=== PATIENT | female | born 1945 | race Caucasian/White ===

== ENCOUNTER → 2020-04-19 | Outpatient (CLI) | payer OTHER ==
[2020-04-19 09:24] LABS: ABSOLUTE NEUTROPHILS 2.8 thou/uL (1.4-8.2); EOSINOPHILS 1.7 % (0.0-3.0); HEMATOCRIT 43.8 % (37.0-47.0); HEMOGLOBIN 14.6 gm/dL (12.0-15.0); LYMPHOCYTES 23.2 % (24.0-44.0); MCH 30.9 pg (26.0-34.0); MCHC 33.4 g/dL (28.0-37.0); MCV 92.4 fL (80.0-100.0); MONOCYTES 8.8 % (1.0-8.0); POLYS 65.3 % (36.0-66.0); RBC 4.74 mil/uL (4.20-5.00); RDW 12.4 % (10.5-14.5); WBC 4.2 thou/uL (4.0-11.0)
[2020-04-19 09:42] LABS: CALCIUM 9.4 mg/dL (8.5-10.1); CREATININE 0.8 mg/dL (0.6-1.0); POTASSIUM 4.3 mmol/L (3.5-5.1); TOTAL BILIRUBIN 0.6 mg/dL (0.2-1.0); TOTAL PROTEIN 6.8 g/dL (6.4-8.2)
--- NOTE | 2020-04-19 09:51 | EKG ---
[place] [address] [facility] [employer] [place] [address] ELECTROCARDIOGRAM REPORT Name: KATHRYN CHRISTIANSON [id number]: 04/19/20 Attend Phys: Jamie Fernandez MD Discharge: Date of : 49 Report #: [id number] [facility] Test Date: 2020-04-19 Test Time: 09:26:02 Pat Name: KATHRYN CHRISTIANSON Department: Room: Gender: F [employer]anking [employer] Operator: ANGEL : 1945 Requested By: Jamie Fernandez Order Number: [id number] MD: Joe Fernandes Measurements Intervals [place] Rate: 68 P: 74 DE: 157 QRS: -36 QRSD: 94 T: 43 QT: 386 QTc: 411 Interpretive Statements Sinus rhythm Probable left atrial enlargement Left axis deviation Low voltage, extremity and precordial leads No previous ECG available for comparison Electronically Signed On 04-19-2020 9:50:54 [employer]LLING MACHINE TENDER by Joe Fernandes [email or web address] <ELECTRONICALLY SIGNED> By: Joe Fernandes MD, [facility] 04/19/20 0950 0926 5 Joe Fernandes MD, FACC /EPI
[2020-04-19 13:19] LABS: PLATELET COUNT 138 thou/uL (150-400)
[2020-04-19 13:20] LABS: LARGE PLATELETS RARE
== END ==
LOC: CV 08:50
PROVIDERS: ATTEND Otolaryngology Plastic Surgery within the Head & Neck
DX: I49.9 Cardiac arrhythmia, unspecified (principal); R22.0 Localized swelling, mass and lump, head

== ENCOUNTER → 2020-04-20 | Outpatient (CLI) | payer OTHER | LOC: LAB 08:13 | PROVIDERS: ATTEND Anesthesiology | DX: Z01.812 Encounter for preprocedural laboratory examination (principal); Z20.828 Contact with and (suspected) exposure to other viral communicable diseases ==